=== PATIENT | female | born 1965 ===

== ENCOUNTER 2023-07-28 14:50 | Outpatient (CLI) | payer MEDICAID | END 2023-07-28 23:59 | disposition home or self-care (01) | LOC: RAD 14:50 | PROVIDERS: ATTEND Surgery Plastic and Reconstructive Surgery | DX: K57.30 Diverticulosis of large intestine without perforation or abscess without bleeding (principal); E65 Localized adiposity; B35.4 Tinea corporis; Z90.49 Acquired absence of other specified parts of digestive tract; Z68.24 Body mass index [BMI] 24.0-24.9, adult | CPT/HCPCS: 74150 ==